=== PATIENT | female | born 1990 | race Caucasian/White ===

== ENCOUNTER 2019-05-25 10:45 | Emergency (ER) | payer SELFPAY ==
[~2019-05-25] VITALS: Ht 158.8 cm; Wt 54.0 kg
[2019-05-25 10:48] VITALS: BP 92/58
--- NOTE | 2019-05-25 10:54 | NUR ---
PT TO BED 3 WITH STEADY GAIT
--- NOTE | 2019-05-25 11:00 | NUR ---
1 week ptc pt had non productive cough accompanied by 1 day low grade fever and rt shoulder pain at 10/10 upon ROM. no consult done self medicated with tylenol with some relief. Pt awake ,alert ,ambulatory with steady gait, sce, cbs, no tonsil congestion.Denies truama and previous illnesses.
--- NOTE | 2019-05-25 11:05 | NUR ---
dr mcclellan at bedside.
[2019-05-25] MEDS ORDERED: NACL 0.9% 1,000 ML IV ONE (11:20)
[2019-05-25] MEDS ORDERED: PROMETH/CODEINE 6.25-10MG/5ML 5 ML UDC PO ONE (11:20)
[2019-05-25 11:50] VITALS: BP 92/58
--- NOTE | 2019-05-25 11:50 | NUR ---
Whitney gonzales in [facility] - 05/25/19 at 1221 by MED[facility] PT LIANA .DR GONZALEZ INFORMED AND AWARE ,IV REMOVE.
--- NOTE | 2019-05-25 11:57 | NUR ---
TRIED TO CALL PT TO INFORM OF POSITIVE INFLUENZA RESULTS. NO ANSWER.
== END 2019-05-25 11:50 | disposition left against medical advice (07) ==
LOC: MED 10:45
DX: J10.00 Influenza due to other identified influenza virus with unspecified type of pneumonia (principal); R07.89 Other chest pain; J02.9 Acute pharyngitis, unspecified
CPT/HCPCS: 71046; 87804; 99284; J7030

== ENCOUNTER 2019-05-25 15:45 | Emergency (ER) | payer SELFPAY ==
[~2019-05-25] VITALS: Ht 149.9 cm; Wt 54.0 kg
[2019-05-25 16:02] VITALS: BP 103/67
--- NOTE | 2019-05-25 16:05 | NUR ---
Note [facility] in EDM - 05/25/19 at 1624 by [email or web address] 29 Y/O FEMALE C/O RT RIB PAIN X 2 DAYS INCREASING IN PAIN. PT STATES "IT FEELS LIKE I AM BEING SHOCKED". DENIES N/V/D. DRY COUGH PRESENT. DENIES CONGESTION. PAIN INCREASES WITH COUGH. RR EVEN AND UNLABORED. BREATH SOUNDS DIMINISHED. PT CRYING IN PAIN. VSS.
--- NOTE | 2019-05-25 16:06 | NUR ---
PT TO BED 11 WITH STEADY GAIT
--- NOTE | 2019-05-25 16:14 | NUR ---
DR GONZALEZ AT BEDSIDE EXAMINING PT
[2019-05-25] MEDS ORDERED: OSELTAMIVIR PHOSPHATE 75 MG CAP PO ONE (16:15)
[2019-05-25] MEDS ORDERED: LEVOFLOXACIN 750 MG TAB PO ONE (16:15)
[2019-05-25] MEDS ORDERED: IBUPROFEN 600 MG TAB PO ONE (16:15)
[2019-05-25 16:31] VITALS: BP 103/67
--- NOTE | 2019-05-25 16:31 | NUR ---
Patient discharged with v/s stable. Written and verbal after care instructions given and explained. Patient alert, oriented and verbalized understanding of instructions. Ambulatory with steady gait. All questions addressed prior to discharge. ID band removed. Patient advised to follow up with PMD. Rx of IBURPROFEN, LEVAQUIN, TAMIFLU given. Patient educated on indication of medication including possible reaction and side effects. Opportunity to ask questions provided and answered.
== END 2019-05-25 16:34 | disposition home or self-care (01) ==
LOC: MED 15:45
DX: J10.00 Influenza due to other identified influenza virus with unspecified type of pneumonia (principal); R07.81 Pleurodynia; M79.10 Myalgia, unspecified site; J02.9 Acute pharyngitis, unspecified
CPT/HCPCS: 99284

== ENCOUNTER 2023-11-23 00:05 | Emergency (ER) | payer MEDICAID ==
[~2023-11-23] VITALS: Ht 154.9 cm; Wt 56.2 kg
[2023-11-23 00:28] VITALS: BP 143/79; PULSE 63; RESP 18; TEMP 97.7; O2SAT 100
[2023-11-23] MEDS ORDERED: SULF-59 PO (02:41)
[2023-11-23] MEDS ORDERED: NAPR-1704 PO (02:41)
[2023-11-23] MEDS ORDERED: CEPH-588 PO (02:41)
[2023-11-23 02:52] VITALS: O2SAT 100
[2023-11-23] MEDS: LIDOCAINE/EPI 1% 1:100000 20 ML VIAL INJ ONE (03:23)
== END 2023-11-23 03:12 | disposition home or self-care (01) ==
LOC: MED 00:05
DX: L03.115 Cellulitis of right lower limb (principal); L02.415 Cutaneous abscess of right lower limb; Z79.1 Long term (current) use of non-steroidal anti-inflammatories (NSAID); Z79.899 Other long term (current) drug therapy; Z79.2 Long term (current) use of antibiotics
CPT/HCPCS: 10060; 99284; J2001

== ENCOUNTER 2024-01-31 18:50 | Emergency (ER) | payer MEDICAID ==
[~2024-01-31] VITALS: Ht 154.9 cm; Wt 59.0 kg
[~2024-01-31 18:50] MED LIST: CEPH-588 PO; NAPR-1704 PO; SULF-59 PO
[2024-01-31 18:58] VITALS: BP 114/83; PULSE 85; RESP 16; TEMP 97.2; O2SAT 100
[2024-01-31] MEDS ORDERED: FLUORESCEIN OPTH STRIP 1 MG OP ONE (19:25)
[2024-01-31] MEDS ORDERED: TETRACAINE HCL/PF 0.5% OPTH 4 ML BTL OP ONE (19:25)
[2024-01-31] MEDS ORDERED: CILOS RIGHT EYE (19:49)
[2024-01-31 19:52] VITALS: BP 114/83; PULSE 85; RESP 16; TEMP 97.2; O2SAT 100
== END 2024-01-31 19:52 | disposition left against medical advice (07) ==
LOC: MED 18:50
DX: T26.81XA Corrosions of other specified parts of right eye and adnexa, initial encounter (principal); I10 Essential (primary) hypertension; Z79.899 Other long term (current) drug therapy; X58.XXXA Exposure to other specified factors, initial encounter; Y93.89 Activity, other specified; Y92.89 Other specified places as the place of occurrence of the external cause; Y99.8 Other external cause status
CPT/HCPCS: 99283